=== PATIENT | male | born 1960 | race African-American/Black ===

== ENCOUNTER 2021-01-02 04:48 | Emergency (ER) | payer OTHER ==
[~2021-01-02] VITALS: Ht 182.9 cm; Wt 117.9 kg
[2021-01-02] MEDS ORDERED: HYZAAR 50-12.51 EACH PO (10:42)
[2021-01-02] MEDS ORDERED: MEDROLPACK PO (10:51)
== END 2021-01-02 10:54 | disposition home or self-care (01) ==
LOC: ER 04:48
DX: R60.0 Localized edema (principal); T78.49XA Other allergy, initial encounter; X58.XXXA Exposure to other specified factors, initial encounter